=== PATIENT | female | born 1985 | race Caucasian/White ===

== ENCOUNTER 2017-04-21 17:35 | Emergency (ER) | payer BC ==
[2017-04-21] MEDS ORDERED: LANTUS PEN100 U/ML SQ (17:45)
[2017-04-21] MEDS ORDERED: NOVOLOG 100U100 U/ML SQ (17:45)
[2017-04-21] MEDS ORDERED: ZOFRAN ODT4 MG PO (18:56)
[2017-04-21 20:20] VITALS: BP 130/86
== END 2017-04-21 20:08 | disposition home or self-care (01) ==
LOC: ED 17:35
DX: A08.4 Viral intestinal infection, unspecified (principal); E10.8 Type 1 diabetes mellitus with unspecified complications; Z79.4 Long term (current) use of insulin
CPT/HCPCS: J2405; J2550; J7030

== ENCOUNTER 2019-09-12 06:57 | Emergency (ER) | payer OTHER ==
[~2019-09-12] VITALS: Wt 66.5 kg
[~2019-09-12 06:57] MED LIST: LANTUS PEN100 U/ML SQ; NOVOLOG 100U100 U/ML SQ; ZOFRAN ODT4 MG PO
[2019-09-12 07:49] LABS: EOS # 0.1 (0.04-0.40); EOS % 0.5 % (1.0-5.0); HEMATOCRIT 39.1 % (37.0-47.0); HEMOGLOBIN 12.6 g/dL (12.5-16.0); LYMPH# 1.9 (1.50-4.00); MEAN CELL VOLUME 96 fl (78-100); MEAN CORPUSCULAR HEMOGLOBIN 31 pg (27-31); MEAN CORPUSCULAR HGB CONC 32 g/dL (33-37); MEAN PLATELET VOLUME 11.1 fl (7.4-10.4); MONO # 0.9 (0.20-0.80); NEU # 11.8 (1.40-6.50); PLATELET COUNT 267 K/mm3 (130-400); RED BLOOD COUNT 4.06 M/mm3 (4.10-5.30); RED CELL DISTRIBUTION WIDTH 13.2 % (11.5-14.5); WHITE BLOOD COUNT 14.8 K/mm3 (4.8-10.8)
[2019-09-12 07:51] LABS: ALBUMIN 3.7 g/dL (3.5-5.0); POTASSIUM 5.1 mmol/L (3.5-5.1)
[2019-09-12 07:52] LABS: CALCIUM 9.4 mg/dL (8.3-10.5)
[2019-09-12 07:53] LABS: TOTAL PROTEIN 7.1 g/dL (6.4-8.3)
[2019-09-12 07:55] LABS: TOTAL BILIRUBIN 0.5 mg/dL (0.2-1.2)
[2019-09-12 08:23] LABS: MAGNESIUM 1.75 mg/dL (1.60-2.60)
[2019-09-12 10:00] LABS: URINE APPEARANCE CLEAR; URINE BILIRUBIN NEGATIVE (NEGATIVE); URINE BLOOD 50 ery/uL (NEGATIVE); URINE COLOR YELLOW; URINE KETONE 3+ (NEGATIVE); URINE LEUKOCYTE ESTERASE NEGATIVE (NEGATIVE); URINE NITRATE NEGATIVE (NEGATIVE); URINE PROTEIN(semi-quant) 1+ mg/dL (NEGATIVE); URINE UROBILINOGEN NORMAL (NORMAL); URINE WBC 0-1 /hpf (0-3)
[2019-09-12 13:50] LABS: POTASSIUM 4.7 mmol/L (3.5-5.1)
[2019-09-12 13:51] LABS: CALCIUM 8.3 mg/dL (8.3-10.5)
[2019-09-12 14:29] VITALS: BP 117/76
[2019-09-12] MEDS ORDERED: AUGMENTIN 875-1 EAC1 (14:58)
== END 2019-09-12 15:05 | disposition short-term general hospital (02) ==
LOC: ED 06:57
PROVIDERS: Nurse Practitioner Family; Nurse Practitioner Primary Care
DX: E10.10 Type 1 diabetes mellitus with ketoacidosis without coma (principal); E10.43 Type 1 diabetes mellitus with diabetic autonomic (poly)neuropathy; K31.84 Gastroparesis
CPT/HCPCS: J1815; J2270; J2405; J2550; J7030